=== PATIENT | female | born 1970 | race Caucasian/White ===

== ENCOUNTER 2024-03-05 10:40 | Emergency (ER) | payer BC ==
[2024-03-05 10:56] VITALS: BP 115/89; PULSE 85; RESP 16; TEMP 98.1; BMI 22.6
[2024-03-05] MEDS ORDERED: LIDOCAINE 5% TOPICAL PATCH ONE ×2 (11:10→11:50)
[2024-03-05] MEDS: LIDOCAINE 5% TOPICAL PATCH TP ONE ×2 (11:40→11:48)
[2024-03-05] MEDS ORDERED: LIDOCAINE PATCH REMOVAL MC SCH ×2 (22:00)
== END 2024-03-05 11:53 | disposition home or self-care (01) ==
LOC: FER 10:40
DX: M54.50 Low back pain, unspecified (principal); G89.29 Other chronic pain
CPT/HCPCS: 99283-25